=== PATIENT | male | born 1960 | race Caucasian/White ===

== ENCOUNTER 2019-08-29 08:04 | Day surgery (SDC) | payer MEDICARE, MEDICAID ==
[~2019-08-29] VITALS: Ht 170.2 cm; Wt 68.2 kg
[2019-08-29 08:18] VITALS: BP 129/68
[2019-08-29] MEDS ORDERED: BENA5TAB7 PO (08:28)
[2019-08-29] MEDS ORDERED: PRAV40TA3 PO (08:28)
[2019-08-29] MEDS ORDERED: METF500T20 PO (08:29)
[2019-08-29] MEDS ORDERED: GLIM1TAB3 PO (08:29)
[2019-08-29] MEDS ORDERED: ASPI-1264 PO (08:31)
[2019-08-29] MEDS ORDERED: fentaNYL/PF 50MCG/1 ML 2ML syringe ONE (09:16)
[2019-08-29] MEDS ORDERED: MIDAZolam 5mg/5ml vial ONE (09:16)
[2019-08-29 10:35] VITALS: BP 92/57
[2019-08-29 10:45] VITALS: BP 95/56
[2019-08-29 10:55] VITALS: BP 93/55
== END 2019-08-29 11:12 | disposition home or self-care (01) ==
LOC: GI LAB 08:04
PROVIDERS: ATTEND Internal Medicine Gastroenterology
DX: R19.5 Other fecal abnormalities (principal); D12.3 Benign neoplasm of transverse colon; D12.2 Benign neoplasm of ascending colon; D12.5 Benign neoplasm of sigmoid colon; K56.2 Volvulus; K57.30 Diverticulosis of large intestine without perforation or abscess without bleeding; K64.8 Other hemorrhoids
CPT/HCPCS: 45385; 45390; 99153; C1773; G0500; J2250; J3010; J7040; 45381; 88305; 99152; A4620

== ENCOUNTER 2023-04-06 10:43 | Outpatient (CLI) | payer MEDICARE, MEDICAID ==
[~2023-04-06 10:43] MED LIST: AMA1T PO; ASPI-1264 PO; BENA5TAB39 PO; METF-900 PO; PRAV40TA3 PO
[2023-04-06 11:11] LABS: BASOPHILS % (AUTO) 0.4 % (0-1); EOSINOPHILS # (AUTO) 0.4 X10'3 (0-0.9); EOSINOPHILS % (AUTO) 4.2 % (0-6); HEMATOCRIT 40.4 % (42.0-52.0); HEMOGLOBIN 13.8 g/dl (14.0-17.9); LYMPHOCYTES # (AUTO) 2.6 X10'3 (1.1-4.8); LYMPHOCYTES % (AUTO) 27.5 % (21-51); MEAN CORPUSCULAR HEMOGLOBIN 32.9 PG (27.0-31.0); MEAN CORPUSCULAR HGB CONC 34.2 g/dL (33.0-36.5); MEAN PLATELET VOLUME 7.8 FL (7.4-10.4); MONOCYTES # (AUTO) 0.7 X10'3 (0-0.9); MONOCYTES % (AUTO) 7.4 % (2-12); NEUTROPHILS # (AUTO) 5.8 X10'3 (1.8-7.7); NEUTROPHILS % (AUTO) 60.5 % (42-75); PLATELET COUNT 242 X10'3 (140-440); RED CELL DISTRIBUTION WIDTH 13.4 % (11.5-14.5); WHITE BLOOD COUNT 9.6 X10'3 (4.5-11.0)
[2023-04-06 11:22] LABS: APTT 27 SECONDS (22-32)
[2023-04-06 11:23] LABS: ALBUMIN 3.5 G/DL (3.4-5.0); ANION GAP 12 (8-16); BLOOD UREA NITROGEN 15 MG/DL (7-18); CALCIUM 9.4 MG/DL (8.5-10.1); CHLORIDE 101 MMOL/L (99-107); CHOL/HDL RATIO 2.7 (0.00-4.99); CHOLESTEROL 153 MG/DL (0-200); CREATININE 0.94 MG/DL (0.60-1.10); GLUCOSE 167 MG/DL (70-104); HDL CHOLESTEROL 57 MG/DL (35-60); LDL CHOLESTEROL 77 MG/DL (50-100); POTASSIUM 4.1 MMOL/L (3.5-5.1); SODIUM 141 MMOL/L (135-145); TOTAL CARBON DIOXIDE 28.1 MMOL/L (24-32); TRIGLYCERIDES 67 MG/DL (20-135); eGFR 82 ML/MIN
== END 2023-04-06 23:59 | disposition home or self-care (01) ==
LOC: LAB 10:43 → EDSTATUS 04-10 16:30
PROVIDERS: ATTEND Student in an Organized Health Care Education/Training Program
DX: I11.9 Hypertensive heart disease without heart failure (principal); E78.5 Hyperlipidemia, unspecified; R07.9 Chest pain, unspecified; Z79.01 Long term (current) use of anticoagulants
CPT/HCPCS: 36415; 80048; 80061; 85025; 85610; 85730

== ENCOUNTER 2023-05-07 13:53 | Day surgery (SDC) | payer MEDICARE, MEDICAID ==
[2023-05-03 10:37] LABS: BASOPHILS # (AUTO) 0.1 X10'3 (0-0.2); BASOPHILS % (AUTO) 0.6 % (0-1); EOSINOPHILS # (AUTO) 0.4 X10'3 (0-0.9); EOSINOPHILS % (AUTO) 4.3 % (0-6); HEMATOCRIT 38.9 % (42.0-52.0); HEMOGLOBIN 13.3 g/dl (14.0-17.9); LYMPHOCYTES # (AUTO) 3.1 X10'3 (1.1-4.8); LYMPHOCYTES % (AUTO) 30.7 % (21-51); MEAN CORPUSCULAR HEMOGLOBIN 33.2 PG (27.0-31.0); MEAN CORPUSCULAR HGB CONC 34.1 g/dL (33.0-36.5); MEAN CORPUSCULAR VOLUME 97.4 FL (78-98); MEAN PLATELET VOLUME 7.9 FL (7.4-10.4); MONOCYTES # (AUTO) 0.7 X10'3 (0-0.9); MONOCYTES % (AUTO) 7.4 % (2-12); NEUTROPHILS # (AUTO) 5.7 X10'3 (1.8-7.7); PLATELET COUNT 265 X10'3 (140-440); RED BLOOD COUNT 3.99 X10'6 (4.70-6.10); RED CELL DISTRIBUTION WIDTH 13.8 % (11.5-14.5)
[2023-05-03 11:03] LABS: ALBUMIN 3.5 G/DL (3.4-5.0); ANION GAP 6 (8-16); BLOOD UREA NITROGEN 31 MG/DL (7-18); BUN/CREATININE RATIO 24.2 (10.0-20.0); CALCIUM 9.6 MG/DL (8.5-10.1); CHLORIDE 97 MMOL/L (99-107); CREATININE 1.28 MG/DL (0.60-1.10); GLUCOSE 350 MG/DL (70-104); POTASSIUM 3.9 MMOL/L (3.5-5.1); SODIUM 133 MMOL/L (135-145); TOTAL CARBON DIOXIDE 30.4 MMOL/L (24-32); eGFR 57 ML/MIN
[2023-05-03 11:06] LABS: APTT 28 SECONDS (22-32); PROTHROMBIN TIME 10.9 SECONDS (9.0-12.0)
[2023-05-07] VITALS (8 sets, daily range): BP systolic 124–147; BP diastolic 70–77; PULSE 73–79; RESP 12–18; TEMP 97.9; O2SAT 92–100
[~2023-05-07] VITALS: Ht 170.2 cm; Wt 65.2 kg
[2023-05-07] MEDS ORDERED: diphenhydrAMINE 25mg capsule PO PRN (14:10)
[2023-05-07] MEDS ORDERED: LORazepam 0.5 MG tablet PO PRN (14:10)
[2023-05-07] MEDS ORDERED: normal saline 1,000 ML IV SCH (14:10)
[2023-05-07] MEDS ORDERED: CLOP75TA34 PO (14:43)
[2023-05-07] MEDS ORDERED: ASPI-1265 PO (14:43)
[2023-05-07] MEDS ORDERED: SEMA1PEN3 SQ (14:43)
[2023-05-07] MEDS ORDERED: ATOR-2 PO (14:43)
[2023-05-07] MEDS ORDERED: LOSA50TA64 PO (14:43)
[2023-05-07] MEDS ORDERED: LINA5TAB4 PO (14:43)
[2023-05-07] MEDS ORDERED: phenylephrine 10mg/ml inj. -priapism dosing ONE (16:05)
[2023-05-07] MEDS ORDERED: heparin 1,000unit/ml 10ml vial 0 ML ONE (16:05)
[2023-05-07] MEDS ORDERED: LIDOcaine 1% 30ml preserv. free vial ONE (16:05)
[2023-05-07] MEDS ORDERED: DOPamine 400mg/D5W 250ml 0 ML IV ONE (16:05)
[2023-05-07] MEDS ORDERED: iohexol 350MG/ML 100ml bottle IV ONE (16:06)
[2023-05-07] MEDS ORDERED: atropine 0.1mg/ml 10ml syringe ONE (16:07)
[2023-05-07] MEDS ORDERED: fentaNYL/PF 50MCG/1 ML 2ML syringe ONE (18:00)
[2023-05-07] MEDS ORDERED: HYDROcodone/acetaminophen 5mg/325mg tablet PO PRN (18:35)
[2023-05-07] MEDS ORDERED: HYDROcodone/acetaminophen 10/325mg tab PO PRN (18:35)
== END 2023-05-07 20:00 | disposition home or self-care (01) ==
LOC: SSTAY O 13:53
PROVIDERS: ATTEND Student in an Organized Health Care Education/Training Program
DX: I25.118 Atherosclerotic heart disease of native coronary artery with other forms of angina pectoris (principal); I65.23 Occlusion and stenosis of bilateral carotid arteries; I10 Essential (primary) hypertension; E78.5 Hyperlipidemia, unspecified; E11.9 Type 2 diabetes mellitus without complications; F84.0 Autistic disorder; K21.9 Gastro-esophageal reflux disease without esophagitis; J44.9 Chronic obstructive pulmonary disease, unspecified; Z79.899 Other long term (current) drug therapy; Z79.4 Long term (current) use of insulin; Z79.82 Long term (current) use of aspirin; Z79.01 Long term (current) use of anticoagulants; Z88.0 Allergy status to penicillin; Z88.1 Allergy status to other antibiotic agents
CPT/HCPCS: 36415; 80048; 82948; 85025; 85610; 85730; 93005; 93458; 99152; J1644; J2370; J3010; J3490; J7030; Q9967; 99153; A6258; C1760; C1894; J0461; J1265

== ENCOUNTER 2023-07-11 05:25 | Day surgery (SDC) | payer MEDICARE, MEDICAID ==
[2023-07-04 14:30] LABS: BASOPHILS # (AUTO) 0.1 X10'3 (0-0.2); BASOPHILS % (AUTO) 0.7 % (0-1); EOSINOPHILS # (AUTO) 0.3 X10'3 (0-0.9); EOSINOPHILS % (AUTO) 3.9 % (0-6); LYMPHOCYTES # (AUTO) 2.5 X10'3 (1.1-4.8); MEAN CORPUSCULAR HEMOGLOBIN 33.5 PG (27.0-31.0); MEAN CORPUSCULAR HGB CONC 33.7 g/dL (33.0-36.5); MEAN CORPUSCULAR VOLUME 99.5 FL (78-98); MEAN PLATELET VOLUME 8.1 FL (7.4-10.4); MONOCYTES # (AUTO) 0.7 X10'3 (0-0.9); MONOCYTES % (AUTO) 9.2 % (2-12); NEUTROPHILS # (AUTO) 4.5 X10'3 (1.8-7.7); NEUTROPHILS % (AUTO) 55.2 % (42-75); PRE OP HEMATOCRIT 37.8 % (42.0-52.0); PRE OP HEMOGLOBIN 12.7 g/dL (14.0-17.9); PRE OP PLATELET COUNT 315 X10'3 (140-440); PRE OP WHITE BLOOD COUNT 8.2 10'3 (4.8-10.8); RED CELL DISTRIBUTION WIDTH 13.6 % (11.5-14.5)
[2023-07-04 14:47] LABS: BILIRUBIN,URINE NEGATIVE (Neg); CLARITY,URINE CLEAR (Clear); COLOR,URINE YELLOW (Yellow); GLUCOSE, URINE 100 mg/dl (Neg); KETONES,URINE NEGATIVE (Neg); LEUKOCYTE ESTERASE ,URINE NEGATIVE (Neg); NITRITES, URINE NEGATIVE (Neg); OCCULT BLOOD,URINE NEGATIVE (Neg); PH,URINE 6.5 (4.8-8.0); PROTEIN,URINE 30 mg/dl (Neg)
[2023-07-04 14:50] LABS: PRE OP PROTIME 10.9 SECONDS (9.0-12.0)
[2023-07-04 14:52] LABS: UA COLLECTION TYPE VOIDED
[2023-07-04 14:53] LABS: BACTERIA,URINE FEW /HPF (Neg); FINE GRANULAR CAST 0-3 /LPF (NEGATIVE); MUCUS STRANDS FEW /LPF (Neg); RBC,URINE 0-2 /HPF (0-2); SQUAMOUS EPITHELIAL CELL,UR FEW /LPF (FEW); WBC,URINE 0-4 /HPF (0-4)
[2023-07-04 15:00] LABS: ALBUMIN 3.2 G/DL (3.4-5.0); ALBUMIN/GLOBULIN RATIO 0.7 (1.1-1.5); ALKALINE PHOSPHATASE 105 IU/L (46-116); BLOOD UREA NITROGEN 16 MG/DL (7-18); BUN/CREATININE RATIO 14.8 (10.0-20.0); CALCIUM 9.2 MG/DL (8.5-10.1); CHLORIDE 100 MMOL/L (99-107); CREATININE 1.08 MG/DL (0.60-1.10); PRE OP ALT 36 U/L (30-65); PRE OP ANION GAP 7 (8-16); PRE OP AST 21 U/L (10-37); PRE OP BILIRUB, TOTAL 0.6 MG/DL (0.0-1.0); PRE OP SODIUM 139 MMOL/L (135-145); TOTAL CARBON DIOXIDE 31.6 MMOL/L (24-32); TOTAL PROTEIN 7.6 G/DL (6.4-8.2); eCRCL 60 ML/MIN; eGFR 70 ML/MIN
[2023-07-04 15:06] LABS: PRE OP GLUCOSE 242 MG/DL (70-104)
[2023-07-04 15:19] LABS: ABG BASE EXCESS 2.3 mmol/L (-2.0-2.0); ABG HCO3 26.2 mmol/L (22.0-26.0); ABG OXYGEN SATURATION 96.4 % (94-97); ABG PCO2 (T) 38.5 mmHg (35.0-48.0); ABG PH (T) 7.451 (7.340-7.440); ABG PO2 (T) 82.3 mmHg (75.0-100.0); ALLEN'S TEST POSITIVE; FCOHb 1.6 % (0.0-3.9); FHHb 3.5 % (0.0-5.0); FMetHb 0.2 % (0.0-1.5); FO2Hb 94.7 % (94-97); MODE ROOM AIR; TOTAL HEMOGLOBIN 14.1 G/dl (14.0-17.9)
[~2023-07-11] VITALS: Ht 162.6 cm; Wt 68.0 kg
[~2023-07-11 05:25] MED LIST changes: -ASPI-1264 PO; +ASPI-611 PO; +ATOR-2 PO; -BENA5TAB39 PO; +CLOP75TA34 PO; +LANTUS SQ; +LOSA50TA64 PO; +METF-1203 PO; -METF-900 PO; +OCUVITE PO; -PRAV40TA3 PO; +SEMA1PEN3 SQ; +albuterol 2.5 MG/3 ML nebule NEB ONE; +ringers solution, lacted 1,000 ML IV SCH
[2023-07-11] MEDS ORDERED: mupirocin 2% nasal ointment 1gm UD NS ONE (05:30)
[2023-07-11] MEDS ORDERED: vancomycin/NS 1 GM in NS 250 ML IV ONE (05:30)
[2023-07-11] MEDS ORDERED: LORazepam 2 mg/ml vial IV ONE (05:30)
[2023-07-11] MEDS ORDERED: metoprolol tartrate 12.5mg (1/2 tablet) PO ONE (05:30)
[2023-07-11] MEDS ORDERED: clindamycin-Cleocin 900mg/D5W 50 ML IV ONE (05:30)
[2023-07-11] MEDS ORDERED: Insulin Reg/NS 100units/100mL 100 ML IV SCH (05:30)
[2023-07-11] MEDS ORDERED: dextrose 50%-water 50ml dispensing syringe IV PRN (05:30)
[2023-07-11] MEDS ORDERED: famotidine 20mg tablet PO ONE (05:30)
[2023-07-11 06:22] VITALS: BP_SYST 130
[2023-07-11] MEDS ORDERED: epiNEPHrine 1 mg/ml inj ONE (06:34)
[2023-07-11] MEDS ORDERED: BUPIVAcaine 0.5% inj/PF 30 ML ONE ×2 (06:35→06:48)
[2023-07-11] MEDS ORDERED: vancomycin 1,000mg inj ONE (06:47)
[2023-07-11] MEDS ORDERED: ceFAZolin 1000mg inj ONE (06:47)
[2023-07-11] MEDS ORDERED: albuterol 2.5 MG/3 ML nebule NEB ONE (07:15)
[2023-07-11 07:22] VITALS: PULSE 66; RESP 18; O2SAT 94
[2023-07-11 07:27] VITALS: PULSE 68; RESP 18
[2023-07-11] MEDS ORDERED: MIDAZolam 1mg/ml 10ml vial ONE (07:39)
[2023-07-11] MEDS ORDERED: SUfentanil 50mcg/ml 1ml amp IV ONE (07:40)
--- NOTE | 2023-07-11 08:41 | NUR ---
PATIENT SURGERY CANCELLED. IV DC'D WITHOUT COMPLICATION. VSS. PATIENT UNDERSTANDS REASON TO WHY SURGERY WAS CANCELLED. DCD HOME WITH FAMILY.
== END 2023-07-11 08:41 | disposition home or self-care (01) ==
LOC: OR 05:25 → PAS IN 05:25 → UNDOADMIN 05:25 → PAS IN 07:49 → EDSTATUS 08:30 → UNDODISIN 08:41 → OR 08:41
PROVIDERS: ATTEND Thoracic Surgery (Cardiothoracic Vascular Surgery)
DX: I25.10 Atherosclerotic heart disease of native coronary artery without angina pectoris (principal); Z53.8 Procedure and treatment not carried out for other reasons; J44.9 Chronic obstructive pulmonary disease, unspecified; E11.9 Type 2 diabetes mellitus without complications; F84.0 Autistic disorder; Z88.0 Allergy status to penicillin; Z88.8 Allergy status to other drugs, medicaments and biological substances; Z79.4 Long term (current) use of insulin; Z79.899 Other long term (current) drug therapy
CPT/HCPCS: 36415; 36600; 71046; 80053; 81001; 82803; 82948; 83036; 85018; 85025; 85610; 85730; 86885; 86900; 86901; 86920; 87081; 93005; 93930; 93970; 94640; 94760; A4615; J0171; J0690; J1815; J2250; J3370; J3490; J7120; S0020

== ENCOUNTER 2023-11-07 19:40 | Emergency (ER) | payer MEDICARE, MEDICAID ==
[~2023-11-07] VITALS: Ht 177.8 cm; Wt 64.0 kg
[~2023-11-07 19:40] MED LIST changes: -ASPI-611 PO; -albuterol 2.5 MG/3 ML nebule NEB ONE; -ringers solution, lacted 1,000 ML IV SCH
[2023-11-07 19:41] VITALS: TEMP 99.2
[2023-11-07 21:33] VITALS: BP 117/78; PULSE 86; RESP 17; O2SAT 94
== END 2023-11-07 21:35 | disposition home or self-care (01) ==
LOC: ER 19:40
DX: T17.828A Food in other parts of respiratory tract causing other injury, initial encounter (principal); F45.8 Other somatoform disorders; Z88.0 Allergy status to penicillin; R13.10 Dysphagia, unspecified; Z88.1 Allergy status to other antibiotic agents; Z79.899 Other long term (current) drug therapy; X58.XXXA Exposure to other specified factors, initial encounter; Y93.89 Activity, other specified; Y92.89 Other specified places as the place of occurrence of the external cause; Y99.8 Other external cause status
CPT/HCPCS: 70490; 99284

== ENCOUNTER → 2023-11-08 | Outpatient (CLI) | payer MEDICARE, MEDICAID ==
[~2023-11-08] MED LIST changes: +iohexol 350MG/ML 100ml bottle IV ONE
[2023-11-08 12:17] LABS: ALBUMIN 3.2 G/DL (3.4-5.0); BLOOD UREA NITROGEN 20 MG/DL (7-18); BUN/CREATININE RATIO 19.2 (10.0-20.0); CALCIUM 8.7 MG/DL (8.5-10.1); CHLORIDE 103 MMOL/L (99-107); CREATININE 1.04 MG/DL (0.60-1.10); GLUCOSE 154 MG/DL (70-104); POTASSIUM 4.1 MMOL/L (3.5-5.1); SODIUM 143 MMOL/L (135-145); eGFR 72 ML/MIN
[2023-11-08 12:26] LABS: ANION GAP 11 (8-16); TOTAL CARBON DIOXIDE 28.6 MMOL/L (24-32)
== END | disposition home or self-care (01) ==
LOC: RAD 11:38
PROVIDERS: ATTEND Thoracic Surgery (Cardiothoracic Vascular Surgery)
DX: I65.23 Occlusion and stenosis of bilateral carotid arteries (principal); J43.9 Emphysema, unspecified; M47.814 Spondylosis without myelopathy or radiculopathy, thoracic region; I25.10 Atherosclerotic heart disease of native coronary artery without angina pectoris
CPT/HCPCS: 36415; 70498; 80048; J3490; Q9967

== ENCOUNTER 2024-01-14 08:00 | Inpatient (IN) | payer MEDICARE, MEDICAID ==
[2024-01-07 09:57] LABS: BASOPHILS # (AUTO) 0.1 X10'3 (0-0.2); BASOPHILS % (AUTO) 0.8 % (0-1); EOSINOPHILS # (AUTO) 0.4 X10'3 (0-0.9); EOSINOPHILS % (AUTO) 3.9 % (0-6); LYMPHOCYTES # (AUTO) 2.3 X10'3 (1.1-4.8); LYMPHOCYTES % (AUTO) 24.6 % (21-51); MEAN CORPUSCULAR HEMOGLOBIN 31.6 PG (27.0-31.0); MEAN CORPUSCULAR HGB CONC 33.5 g/dL (33.0-36.5); MEAN CORPUSCULAR VOLUME 94.2 FL (78-98); MEAN PLATELET VOLUME 7.5 FL (7.4-10.4); MONOCYTES # (AUTO) 0.6 X10'3 (0-0.9); NEUTROPHILS # (AUTO) 5.8 X10'3 (1.8-7.7); NEUTROPHILS % (AUTO) 63.7 % (42-75); PRE OP HEMATOCRIT 37.9 % (42.0-52.0); PRE OP HEMOGLOBIN 12.7 g/dL (14.0-17.9); PRE OP PLATELET COUNT 308 X10'3 (140-440); PRE OP WHITE BLOOD COUNT 9.1 10'3 (4.8-10.8); RED BLOOD COUNT 4.02 X10'6 (4.70-6.10); RED CELL DISTRIBUTION WIDTH 13.9 % (11.5-14.5)
[2024-01-07 10:11] LABS: ALBUMIN 3.1 G/DL (3.4-5.0); ALBUMIN/GLOBULIN RATIO 0.6 (1.1-1.5); ALKALINE PHOSPHATASE 94 IU/L (46-116); BLOOD UREA NITROGEN 23 MG/DL (7-18); BUN/CREATININE RATIO 18.3 (10.0-20.0); CALCIUM 9.6 MG/DL (8.5-10.1); CHLORIDE 101 MMOL/L (99-107); CREATININE 1.26 MG/DL (0.60-1.10); PRE OP ALT 32 U/L (30-65); PRE OP ANION GAP 9 (8-16); PRE OP AST 26 U/L (10-37); PRE OP BILIRUB, TOTAL 0.7 MG/DL (0.0-1.0); PRE OP SODIUM 141 MMOL/L (135-145); TOTAL CARBON DIOXIDE 30.9 MMOL/L (24-32); TOTAL PROTEIN 8.2 G/DL (6.4-8.2); eGFR 58 ML/MIN
[2024-01-07 10:14] LABS: HEMOGLOBIN A1C 8.2 % (4.5-6.2)
[2024-01-07 10:23] LABS: PRE OP GLUCOSE 208 MG/DL (70-104)
[2024-01-13] MEDS: DOCUMENT DATE & TIME OF BETA-BLOCKER PO ONE (20:00)
[~2024-01-14] VITALS: Ht 170.2 cm; Wt 68.8 kg
[2024-01-14] VITALS (24 sets, daily range): BP systolic 77–138; BP diastolic 32–74; PULSE 60–79; RESP 10–21; TEMP 98.1; O2SAT 93–100
[~2024-01-14 08:00] MED LIST changes: +ASPI81TA52 PO; -CLOP75TA34 PO; +FURO-150 PO; -LOSA50TA64 PO; +METO25TA6 PO; -OCUVITE PO; +PANT-47 PO; -SEMA1PEN3 SQ; -iohexol 350MG/ML 100ml bottle IV ONE
[2024-01-14] MEDS: famotidine 20mg tablet PO ONE (09:18)
[2024-01-14] MEDS: mupirocin 2% nasal ointment 1gm UD NS ONE (09:18)
[2024-01-14] MEDS: metoprolol tartrate 12.5mg (1/2 tablet) PO ONE (09:19)
[2024-01-14] MEDS: ringers solution, lacted 1,000 ML IV SCH ×2 (09:40→18:48)
[2024-01-14] MEDS ORDERED: LIDOcaine 1% 30ml preserv. free vial ONE (11:41)
[2024-01-14] MEDS: LIDOcaine 1%/PF 5ML 10 MG/ML VIAL IJ ONE (12:00)
[2024-01-14] MEDS ORDERED: sevoflurane 250ml liquid IH ONE (12:02)
[2024-01-14] MEDS ORDERED: midazolam 1 mg/ML 2ml injection ONE (12:04)
[2024-01-14] MEDS ORDERED: fentaNYL/PF 50MCG/1 ML 2ML syringe ONE (12:04)
[2024-01-14] MEDS ORDERED: propofol inj 20 ML IV ONE (12:58)
[2024-01-14] MEDS ORDERED: rocuronium 10mg/ml inj IV ONE (12:58)
[2024-01-14] MEDS ORDERED: heparin 1,000unit/ml 10ml vial 10 ML ONE (12:58)
[2024-01-14] MEDS ORDERED: labetalol 20mg/4ml (5mg/ml) syringe IV ONE (13:12)
[2024-01-14] MEDS ORDERED: METOPROLOL TARTRATE PO PRN (13:25)
[2024-01-14] MEDS ORDERED: furosemide 20MG tablet PO PRN (13:25)
[2024-01-14] MEDS ORDERED: morphine 4 MG/ML inj SYRINge IV PRN ×2 (13:30→14:25)
[2024-01-14] MEDS ORDERED: metoclopramide 5 mg/ml inj IV PRN (13:30)
[2024-01-14] MEDS ORDERED: HYDROcodone/acetaminophen 10/325mg tab PO PRN (13:30)
[2024-01-14] MEDS ORDERED: ondansetron/PF 4mg/2ml inj IV PRN ×2 (13:30→14:25)
[2024-01-14] MEDS ORDERED: dextrose 50%-water 50ml dispensing syringe IV PRN ×2 (13:35)
[2024-01-14] MEDS ORDERED: DEXTROSE 15 GM of carb/4 tabs (each vial/BOTTLE has 4 tablets) PO PRN ×2 (13:35)
[2024-01-14] MEDS ORDERED: glucagon, human recombinant 1mg kit SUBCUT PRN (13:35)
[2024-01-14] MEDS: heparin 10,000 units/1 ML INJ ONE (13:42)
[2024-01-14] MEDS ORDERED: meperidine/PF 25mg/ml syringe IV PRN ×3 (14:25)
[2024-01-14] MEDS ORDERED: proCHLORperazine 10 MG/2 ml inj IV PRN (14:25)
[2024-01-14] MEDS ORDERED: morphine 2 MG/ML inj. syringe IV PRN (14:25)
[2024-01-14] MEDS: HYDROcodone/acetaminophen 10/325mg tab PO PRN (16:30)
[2024-01-14] MEDS: ceFAZolin inj. 1,000 MG in dextrose 5%-water 50ml 50 ML IV SCH (16:57)
[2024-01-14] MEDS ORDERED: insulin Lispro (HumaLOG) vial - multi-dose SQ SCH (17:00)
[2024-01-14] MEDS: insulin Lispro (HumaLOG) vial - multi-dose SQ SCH ×2 (17:02→17:03)
[2024-01-14] MEDS: albumin (Human) 5% 250ml 250 ML IV ONE (17:21)
[2024-01-14] MEDS: morphine 2 MG/ML inj. syringe IV PRN (17:59)
[2024-01-14] MEDS: phenylephrine inj 50 MG in normal saline 250ml IV solN IV SCH (18:48)
[2024-01-14] MEDS: nitroPRUSSIDE (NIPRIDE) (200MCG/ML) 100ML Drip IV SCH (18:48)
[2024-01-14] MEDS: cefazolin 2gm/D5W 100mL 100 ML IV ONE (18:48)
[2024-01-14] MEDS: atorvastatin 20mg tablet PO SCH (20:44)
[2024-01-14] MEDS: gabapentin 300mg capsule PO SCH (20:45)
[2024-01-14] MEDS: insulin glargine (Lantus) pen - multi-dose SQ SCH (20:55)
[2024-01-15] VITALS (12 sets, daily range): BP systolic 85–122; BP diastolic 46–62; PULSE 72–99; RESP 8–30; O2SAT 94–100
[2024-01-15] MEDS: aspirin 81mg, enteric-coated 1 TAB TABLET.DR PO SCH (08:24)
[2024-01-15] MEDS: pantoprazole 40mg Tablet.DR PO SCH (08:24)
[2024-01-15] MEDS ORDERED: CLOP-32 PO (08:26)
== END 2024-01-15 10:46 | disposition home or self-care (01) | DRG 38 ==
LOC: PAS IN 08:23 → CICU 2S 15:12
PROVIDERS: ADMIT Thoracic Surgery (Cardiothoracic Vascular Surgery); ATTEND Thoracic Surgery (Cardiothoracic Vascular Surgery)
PROC: 03UL0KZ Supplement Left Internal Carotid Artery with Nonautologous Tissue Substitute, Open Approach (ICD-10-PCS; 2024-01-14)
PROC: 03HY32Z Insertion of Monitoring Device into Upper Artery, Percutaneous Approach (ICD-10-PCS; 2024-01-14)
PROC: 03CL0ZZ Extirpation of Matter from Left Internal Carotid Artery, Open Approach (ICD-10-PCS; principal; 2024-01-14 12:02)
DX: I65.22 Occlusion and stenosis of left carotid artery (principal); F84.0 Autistic disorder; E78.5 Hyperlipidemia, unspecified; E11.9 Type 2 diabetes mellitus without complications; I10 Essential (primary) hypertension; Z95.1 Presence of aortocoronary bypass graft; Z88.0 Allergy status to penicillin; Z88.1 Allergy status to other antibiotic agents
CPT/HCPCS: 36415; 80053; 82948; 83036; 85025; 86885; 86900; 86901; 87081; 93005; A4615; A4618; A6213; A6250; A6258; A6402; A6449; A7000; G0378; J0690; J1644; J1815; J2250; J2270; J2370; J2704; J2710; J3010; J3490; J7050; J7060; J7120; P9045

== ENCOUNTER 2024-10-09 11:11 | Outpatient (CLI) | payer MEDICARE, MEDICAID ==
[~2024-10-09 11:11] MED LIST changes: -AMA1T PO; +CLOP-32 PO; +GLIM1TAB57 PO; +iohexol 350MG/ML 100ml bottle IV ONE
[2024-10-09 12:00] LABS: ALBUMIN 3.6 G/DL (3.4-5.0); ANION GAP 10 (8-16); BLOOD UREA NITROGEN 19 MG/DL (7-18); BUN/CREATININE RATIO 19.2 (10.0-20.0); CALCIUM 9.6 MG/DL (8.5-10.1); CHLORIDE 101 MMOL/L (99-107); CREATININE 0.99 MG/DL (0.60-1.10); GLUCOSE 175 MG/DL (70-104); SODIUM 140 MMOL/L (135-145); TOTAL CARBON DIOXIDE 29.3 MMOL/L (24-32); eGFR 77 ML/MIN
== END 2024-10-09 23:59 | disposition home or self-care (01) ==
LOC: RAD 11:11
PROVIDERS: ATTEND Internal Medicine Interventional Cardiology
DX: I25.810 Atherosclerosis of coronary artery bypass graft(s) without angina pectoris (principal)
CPT/HCPCS: 36415; 80048; Q9967

== ENCOUNTER 2024-10-09 11:45 | Emergency (ER) | payer MEDICARE, MEDICAID ==
[~2024-10-09] VITALS: Ht 170.2 cm; Wt 67.3 kg
[~2024-10-09 11:45] MED LIST changes: -iohexol 350MG/ML 100ml bottle IV ONE
[2024-10-09 11:51] VITALS: TEMP 98.7
[2024-10-09 12:28] LABS: BASOPHILS # (AUTO) 0.1 X10'3 (0-0.2); BASOPHILS % (AUTO) 0.5 % (0-1); EOSINOPHILS # (AUTO) 0.3 X10'3 (0-0.9); EOSINOPHILS % (AUTO) 2.7 % (0-6); HEMATOCRIT 38.1 % (42.0-52.0); HEMOGLOBIN 12.6 g/dl (14.0-17.9); LYMPHOCYTES # (AUTO) 2.7 X10'3 (1.1-4.8); LYMPHOCYTES % (AUTO) 24.4 % (21-51); MEAN CORPUSCULAR HEMOGLOBIN 31.3 PG (27.0-31.0); MEAN CORPUSCULAR HGB CONC 33.2 g/dL (33.0-36.5); MEAN CORPUSCULAR VOLUME 94.4 FL (78-98); MEAN PLATELET VOLUME 8.1 FL (7.4-10.4); MONOCYTES # (AUTO) 0.9 X10'3 (0-0.9); MONOCYTES % (AUTO) 8.1 % (2-12); NEUTROPHILS # (AUTO) 7.2 X10'3 (1.8-7.7); NEUTROPHILS % (AUTO) 64.3 % (42-75); PLATELET COUNT 312 X10'3 (140-440); RED BLOOD COUNT 4.04 X10'6 (4.70-6.10); RED CELL DISTRIBUTION WIDTH 14.6 % (11.5-14.5); WHITE BLOOD COUNT 11.2 X10'3 (4.5-11.0)
[2024-10-09 12:32] LABS: ALANINE AMINOTRANSFERASE 39 U/L (12-78); ALBUMIN 3.4 G/DL (3.4-5.0); ALBUMIN/GLOBULIN RATIO 0.6 (1.1-1.5); ALKALINE PHOSPHATASE 97 IU/L (46-116); ASPARTATE AMINO TRANSFERASE 34 U/L (10-37); BILIRUBIN,DIRECT 0.2 MG/DL (0-0.3); BILIRUBIN,TOTAL 1.1 MG/DL (0.1-1.0); ETHANOL < 10 MG/DL (<10); LIPASE 121 U/L (16-77); MAGNESIUM 1.8 MG/DL (1.5-2.4); TOTAL PROTEIN 8.8 G/DL (6.4-8.2)
[2024-10-09 13:44] LABS: ANION GAP 13 (8-16); BLOOD UREA NITROGEN 20 MG/DL (7-18); BUN/CREATININE RATIO 19.2 (10.0-20.0); CALCIUM 9.7 MG/DL (8.5-10.1); CHLORIDE 100 MMOL/L (99-107); CREATININE 1.04 MG/DL (0.60-1.10); GLUCOSE 210 MG/DL (70-104); POTASSIUM 4.1 MMOL/L (3.5-5.1); SODIUM 139 MMOL/L (135-145); eCRCL 69 ML/MIN; eGFR 72 ML/MIN
[2024-10-09 16:23] VITALS: BP 126/86; PULSE 86; RESP 16; O2SAT 98
[2024-10-20] MEDS ORDERED: SEMA1PEN3 (14:53)
[2024-10-20] MEDS ORDERED: EZET10TA48 PO (14:53)
[2024-10-20] MEDS ORDERED: CLOP75TA34 PO (14:53)
== END 2024-10-09 16:23 | disposition home or self-care (01) ==
LOC: ER 11:46
DX: R55 Syncope and collapse (principal); R56.9 Unspecified convulsions; Z88.0 Allergy status to penicillin; Z88.1 Allergy status to other antibiotic agents; Z79.899 Other long term (current) drug therapy; Z79.82 Long term (current) use of aspirin; Z79.4 Long term (current) use of insulin
CPT/HCPCS: 36415; 70450; 70496; 70498; 80048; 80076; 82948; 83690; 83735; 85025; 93005; 99285; G0480; Q9967; 80320

== ENCOUNTER 2024-10-22 10:18 | Emergency (ER) | payer MEDICARE, MEDICAID ==
[~2024-10-22] VITALS: Ht 170.2 cm; Wt 68.2 kg
[~2024-10-22 10:18] MED LIST changes: -CLOP-32 PO; +CLOP75TA34 PO; +EZET10TA48 PO; -FURO-150 PO; +SEMA1PEN3
[2024-10-22 11:23] LABS: ALANINE AMINOTRANSFERASE 39 U/L (12-78); ALBUMIN 2.9 G/DL (3.4-5.0); ALBUMIN/GLOBULIN RATIO 0.6 (1.1-1.5); ALKALINE PHOSPHATASE 87 IU/L (46-116); ANION GAP 7 (8-16); ASPARTATE AMINO TRANSFERASE 25 U/L (10-37); BILIRUBIN,TOTAL 0.8 MG/DL (0.1-1.0); BLOOD UREA NITROGEN 12 MG/DL (7-18); CALCIUM 8.6 MG/DL (8.5-10.1); CHLORIDE 106 MMOL/L (99-107); GLUCOSE 225 MG/DL (70-104); SODIUM 141 MMOL/L (135-145); TOTAL CARBON DIOXIDE 27.9 MMOL/L (24-32); TOTAL PROTEIN 7.8 G/DL (6.4-8.2); eCRCL 59 ML/MIN; eGFR 61 ML/MIN
[2024-10-22 11:28] LABS: BASOPHILS # (AUTO) 0.1 X10'3 (0-0.2); EOSINOPHILS # (AUTO) 0.3 X10'3 (0-0.9); HEMOGLOBIN 11.5 g/dl (14.0-17.9); MONOCYTES # (AUTO) 0.8 X10'3 (0-0.9); PLATELET COUNT 224 X10'3 (140-440); RED CELL DISTRIBUTION WIDTH 15.6 % (11.5-14.5); WHITE BLOOD COUNT 10.3 X10'3 (4.5-11.0)
[2024-10-22 11:30] LABS: BASOPHILS % (AUTO) 0.8 % (0-1); EOSINOPHILS % (AUTO) 2.6 % (0-6); HEMATOCRIT 34.2 % (42.0-52.0); LYMPHOCYTES # (AUTO) 2.3 X10'3 (1.1-4.8); LYMPHOCYTES % (AUTO) 21.9 % (21-51); MEAN CORPUSCULAR HEMOGLOBIN 32.3 PG (27.0-31.0); MEAN CORPUSCULAR HGB CONC 33.7 g/dL (33.0-36.5); MEAN PLATELET VOLUME 8.3 FL (7.4-10.4); MONOCYTES % (AUTO) 7.3 % (2-12); NEUTROPHILS # (AUTO) 6.9 X10'3 (1.8-7.7); NEUTROPHILS % (AUTO) 67.4 % (42-75); RED BLOOD COUNT 3.57 X10'6 (4.70-6.10)
[2024-10-22 11:31] LABS: PRO BRAIN NATRIURETIC PEPTIDE 543 PG/ML (0-125)
[2024-10-22] MEDS: ringers solution, lacted 1,000 ML IV ONE (12:24)
[2024-10-22 15:48] VITALS: BP 119/64; PULSE 66; RESP 16; TEMP 97.8; O2SAT 98
== END 2024-10-22 15:56 | disposition home or self-care (01) ==
LOC: ER 10:19
DX: I95.9 Hypotension, unspecified (principal); Z88.0 Allergy status to penicillin; Z88.1 Allergy status to other antibiotic agents; Z79.82 Long term (current) use of aspirin; Z79.899 Other long term (current) drug therapy
CPT/HCPCS: 36415; 71045; 80053; 83605; 83880; 84484; 85025; 87040; 93005; 96360; 96361; 99285; J7030; J7120